=== PATIENT | male | born 1945 | race Two or more races ===

== ENCOUNTER 2020-01-05 11:09 | Outpatient (CLI) | payer MEDICARE ==
[~2020-01-05 11:09] MED LIST: BENTYL10 MG ORAL; PROTONIX40 MG ORAL
[2020-01-05 11:23] VITALS: BP 115/88
[2020-01-05] MEDS ORDERED: CHOLESTEROL MED (11:26)
[2020-01-05] MEDS ORDERED: LYRICA75 M1 ORAL (11:26)
[2020-01-05] MEDS ORDERED: ALFUZOSIN HCL10 MG PO (11:26)
[2020-01-05] MEDS ORDERED: FAMOTIDINE20 MG ORAL (11:26)
--- NOTE | 2020-01-07 15:22 | General Progress Note ---
Subjective ROS Limited/Unobtainable: Yes Allergies: Coded Allergies: TOLTERODINE (Unverified Allergy, Severe, 02/23/16) Objective General Appearance: alert EENT: normal ENT inspection Neck: supple Cardiovascular: normal rate Respiratory/Chest: lungs clear Abdomen: normal bowel sounds, non tender, soft Extremities: non-tender Assessment/Plan Assessment/Plan: chronic GERD diverticulosis? diverticulitis baclofen abx patient to RTC for colonoscopy Jose Blackwood MD Jan 07, 2020 15:22
== END 2020-01-05 13:09 | disposition home or self-care (01) ==
LOC: PAN 11:09
DX: K21.9 Gastro-esophageal reflux disease without esophagitis (principal); K57.92 Diverticulitis of intestine, part unspecified, without perforation or abscess without bleeding; Z88.8 Allergy status to other drugs, medicaments and biological substances
CPT/HCPCS: 99212

== ENCOUNTER 2020-02-17 14:23 | Outpatient (CLI) | payer MEDICARE, BC ==
[~2020-02-17 14:23] MED LIST changes: +ALFUZOSIN HCL10 MG PO; +CHOLESTEROL MED; +FAMOTIDINE20 MG ORAL; +LYRICA75 M1 ORAL
[2020-02-17 14:34] VITALS: BP 126/72
== END 2020-02-17 16:23 | disposition home or self-care (01) ==
LOC: PAN 14:23
DX: R10.9 Unspecified abdominal pain (principal)
CPT/HCPCS: 99212

== ENCOUNTER 2020-05-18 12:43 | Outpatient (CLI) | payer MEDICARE, BC ==
[2020-05-18 13:09] VITALS: BP 113/69
--- NOTE | 2020-05-20 17:02 | General Progress Note ---
Subjective ROS Limited/Unobtainable: Yes Allergies: Coded Allergies: TOLTERODINE (Unverified Allergy, Severe, 02/23/16) Objective General Appearance: alert EENT: normal ENT inspection Neck: supple Cardiovascular: normal rate Respiratory/Chest: decreased breath sounds Abdomen: hypoactive bowel sounds Extremities: non-tender Assessment/Plan Assessment/Plan: chronic LLQ abd pain ? due to diverticulosis gallstones BPH liver hemangioma bilateral inguinal hernia cont augmentin for 4 more days add Diltiazem for esophageal spasm 60 mg TID colonoscopy when patient is ready Jose Blackwood MD May 20, 2020 17:02
== END 2020-05-18 14:43 | disposition home or self-care (01) ==
LOC: PAN 12:43
DX: K57.90 Diverticulosis of intestine, part unspecified, without perforation or abscess without bleeding (principal); K80.80 Other cholelithiasis without obstruction; D18.09 Hemangioma of other sites; K40.20 Bilateral inguinal hernia, without obstruction or gangrene, not specified as recurrent; Z88.8 Allergy status to other drugs, medicaments and biological substances
CPT/HCPCS: 99212